=== PATIENT | male | born 1965 | race Asian ===

== ENCOUNTER 2018-03-17 10:48 | Day surgery (SDC) | payer MEDICAID ==
[~2018-03-17] VITALS: Ht 165.1 cm; Wt 54.5 kg
[~2018-03-17 10:48] MED LIST: DIPH25CA83 PO; METH-603 PO; PENI500T2 PO; PRED10TA PO
[2018-03-17] MEDS ORDERED: METHADONE (11:53)
[2018-03-17 12:00] VITALS: BP 120/70
[2018-03-17] MEDS ORDERED: fentaNYL/PF 50MCG/1 ML 2ML syringe ONE (12:17)
[2018-03-17] MEDS ORDERED: LIDOcaine Viscous 15ml cup ONE (12:17)
[2018-03-17] MEDS ORDERED: MIDAZolam 5mg/5ml vial ONE (12:17)
[2018-03-17 13:46] VITALS: BP 119/76
[2018-03-17 13:56] VITALS: BP 107/78
[2018-03-17 14:06] VITALS: BP 108/73
[2018-03-17 14:16] VITALS: BP 115/80
== END 2018-03-17 14:25 | disposition home or self-care (01) ==
LOC: GI LAB 10:48
PROVIDERS: ATTEND Internal Medicine Gastroenterology
DX: K44.9 Diaphragmatic hernia without obstruction or gangrene (principal)
CPT/HCPCS: 43235; 99152; J2250; J3010; J7030

== ENCOUNTER 2019-04-03 08:16 | Emergency (ER) | payer MEDICAID ==
[~2019-04-03] VITALS: Ht 177.8 cm; Wt 77.0 kg
[~2019-04-03 08:16] MED LIST changes: -DIPH25CA83 PO; -METH-603 PO; +METHADONE; -PENI500T2 PO; -PRED10TA PO
[2019-04-03 08:41] LABS: BASOPHILS % (AUTO) 0.1 % (0-1); EOSINOPHILS # (AUTO) 0.5 X10'3 (0-0.9); EOSINOPHILS % (AUTO) 3.1 % (0-6); HEMATOCRIT 44.2 % (42.0-52.0); HEMOGLOBIN 14.6 g/dl (14.0-17.9); LYMPHOCYTES % (AUTO) 16.7 % (21-51); MEAN CORPUSCULAR VOLUME 81.8 FL (78-98); MONOCYTES # (AUTO) 1.1 X10'3 (0-0.9); MONOCYTES % (AUTO) 6.4 % (2-12); NEUTROPHILS # (AUTO) 13.2 X10'3 (1.8-7.7); NEUTROPHILS % (AUTO) 73.7 % (42-75); PLATELET COUNT 336 X10'3 (140-440); RED BLOOD COUNT 5.41 X10'6 (4.70-6.10); RED CELL DISTRIBUTION WIDTH 16.1 % (11.5-14.5); WHITE BLOOD COUNT 17.9 X10'3 (4.5-11.0)
[2019-04-03 08:56] LABS: ALANINE AMINOTRANSFERASE 33 U/L (12-78); ALBUMIN 3.7 G/DL (3.4-5.0); ALBUMIN/GLOBULIN RATIO 0.8 (1.1-1.5); ALKALINE PHOSPHATASE 85 IU/L (46-116); ANION GAP 8 (8-16); ASPARTATE AMINO TRANSFERASE 19 U/L (10-37); BILIRUBIN,TOTAL 0.3 MG/DL (0.1-1.0); BLOOD UREA NITROGEN 8 MG/DL (7-18); BUN/CREATININE RATIO 9.2 (5.4-32.0); CALCIUM 8.7 MG/DL (8.5-10.1); CHLORIDE 104 MMOL/L (99-107); CREATININE 0.87 MG/DL (0.60-1.10); GLUCOSE 116 MG/DL (70-104); POTASSIUM 3.8 MMOL/L (3.5-5.1); SODIUM 142 MMOL/L (135-145); TOTAL CARBON DIOXIDE 29.6 MMOL/L (24-32); TOTAL PROTEIN 8.1 G/DL (6.4-8.2); eGFR > 90 ML/MIN
[2019-04-03] MEDS ORDERED: ondansetron/PF 4mg/2ml inj IV ONE (09:10)
[2019-04-03] MEDS ORDERED: pantoprazole 40 MG vial IV ONE (09:10)
[2019-04-03] MEDS ORDERED: normal saline 1000ML IV soln IVB ONE (09:10)
[2019-04-03] MEDS: morphine 2 MG/ML inj. syringe IV PRN ×2 (09:18→10:46)
[2019-04-03 09:31] LABS: CLARITY,URINE CLEAR (Clear); COLOR,URINE YELLOW (Yellow); GLUCOSE, URINE NEGATIVE (Neg); KETONES,URINE NEGATIVE (Neg); LEUKOCYTE ESTERASE ,URINE NEGATIVE (Neg); NITRITES, URINE NEGATIVE (Neg); OCCULT BLOOD,URINE NEGATIVE (Neg); PROTEIN,URINE NEGATIVE (Neg)
[2019-04-03 09:34] LABS: UA COLLECTION TYPE STRAIGHT CATH
--- NOTE | 2019-04-03 09:36 | NUR ---
Spouse at bedside,due meds given,patient appears comfortable on bed holden position,call light within reach.Awaiting for lab test result.
[2019-04-03] MEDS ORDERED: iohexol 300mg/ml 100ml inj. ONE (10:14)
[2019-04-03] MEDS ORDERED: magnesium citrate 296ml oral solution PO ONE (12:05)
--- NOTE | 2019-04-03 12:11 | NUR ---
CALLED CHILD/ODONNELL MADE AWARE THAT PATIENT IS BEING DISCHARGE AND THAT MD NEEDS TO TALK TO A FAMILY MEMBER UPON DC TO INTERPRET DC INSTRUCTIONS.
--- NOTE | 2019-04-03 12:54 | NUR ---
assisted pt with urinal, no other needs at this time.
[2019-04-03 14:22] VITALS: BP 109/73
== END 2019-04-03 14:24 | disposition home or self-care (01) ==
LOC: ER 08:17
DX: K59.00 Constipation, unspecified (principal); R10.13 Epigastric pain; R41.0 Disorientation, unspecified; G89.29 Other chronic pain; F17.200 Nicotine dependence, unspecified, uncomplicated; Z88.6 Allergy status to analgesic agent; Z79.899 Other long term (current) drug therapy
CPT/HCPCS: 36415; 74177; 80053; 81003; 85025; 85610; 96374; 96375; 96376; 99284; C9113; J2270; J2405; J7030; Q9967

== ENCOUNTER 2020-02-09 20:47 | Emergency (ER) | payer MEDICAID ==
[~2020-02-09] VITALS: Ht 167.6 cm; Wt 81.8 kg
--- NOTE | 2020-02-09 21:06 | NUR ---
SAMANTHA [phone]
[2020-02-09] MEDS ORDERED: proCHLORperazine 10 MG/2 ml inj IV ONE (21:25)
[2020-02-09] MEDS ORDERED: normal saline 1000ML IV soln IVB ONE (21:25)
[2020-02-09 21:34] LABS: BASOPHILS # (AUTO) 0.1 X10'3 (0-0.2); BASOPHILS % (AUTO) 0.6 % (0-1); EOSINOPHILS # (AUTO) 0.3 X10'3 (0-0.9); EOSINOPHILS % (AUTO) 2.4 % (0-6); HEMATOCRIT 47.9 % (42.0-52.0); HEMOGLOBIN 15.5 g/dl (14.0-17.9); LYMPHOCYTES # (AUTO) 1.8 X10'3 (1.1-4.8); LYMPHOCYTES % (AUTO) 13.3 % (21-51); MEAN CORPUSCULAR HEMOGLOBIN 25.8 PG (27.0-31.0); MEAN CORPUSCULAR HGB CONC 32.3 g/dL (33.0-36.5); MEAN CORPUSCULAR VOLUME 79.8 FL (78-98); MEAN PLATELET VOLUME 7.7 FL (7.4-10.4); MONOCYTES # (AUTO) 1.1 X10'3 (0-0.9); MONOCYTES % (AUTO) 7.7 % (2-12); NEUTROPHILS # (AUTO) 10.4 X10'3 (1.8-7.7); PLATELET COUNT 289 X10'3 (140-440); RED CELL DISTRIBUTION WIDTH 16.6 % (11.5-14.5); WHITE BLOOD COUNT 13.7 X10'3 (4.5-11.0)
[2020-02-09 21:48] LABS: ALANINE AMINOTRANSFERASE 59 U/L (12-78); ALBUMIN 3.8 G/DL (3.4-5.0); ALBUMIN/GLOBULIN RATIO 0.8 (1.1-1.5); ALKALINE PHOSPHATASE 92 IU/L (46-116); AMYLASE 54 U/L (25-115); ANION GAP 3 (8-16); ASPARTATE AMINO TRANSFERASE 26 U/L (10-37); BILIRUBIN,TOTAL 0.4 MG/DL (0.1-1.0); BLOOD UREA NITROGEN 9 MG/DL (7-18); BUN/CREATININE RATIO 10.6 (5.4-32.0); CALCIUM 9.1 MG/DL (8.5-10.1); CHLORIDE 99 MMOL/L (99-107); CREATININE 0.85 MG/DL (0.60-1.10); GLUCOSE 293 MG/DL (70-104); LIPASE 204 U/L (73-393); POTASSIUM 4.4 MMOL/L (3.5-5.1); SODIUM 135 MMOL/L (135-145); TOTAL CARBON DIOXIDE 32.7 MMOL/L (24-32); TOTAL PROTEIN 8.4 G/DL (6.4-8.2); eGFR > 90 ML/MIN
[2020-02-09 22:35] LABS: CLARITY,URINE CLEAR (Clear); COLOR,URINE YELLOW (Yellow); GLUCOSE, URINE >=1000 mg/dl (Neg); KETONES,URINE NEGATIVE (Neg); LEUKOCYTE ESTERASE ,URINE NEGATIVE (Neg); NITRITES, URINE NEGATIVE (Neg); OCCULT BLOOD,URINE NEGATIVE (Neg); PROTEIN,URINE NEGATIVE (Neg); UROBILINOGEN,URINE 0.2 E.U/dL (0.2-1.0)
[2020-02-09 22:37] LABS: UA COLLECTION TYPE CLN CATCH MIDSTREAM
[2020-02-09 22:40] LABS: BACTERIA,URINE NONE SEEN /HPF (Neg); RBC,URINE NONE SEEN /HPF (0-2); SQUAMOUS EPITHELIAL CELL,UR FEW /LPF (FEW); WBC,URINE NONE SEEN /HPF (0-4)
[2020-02-09] MEDS ORDERED: PROC-8 PO (23:26)
[2020-02-10 00:04] VITALS: BP 120/87
== END 2020-02-10 00:05 | disposition home or self-care (01) ==
LOC: ER 20:47
DX: R11.0 Nausea (principal); R10.84 Generalized abdominal pain; R73.9 Hyperglycemia, unspecified; G89.29 Other chronic pain; F19.90 Other psychoactive substance use, unspecified, uncomplicated; Z88.6 Allergy status to analgesic agent; Z79.899 Other long term (current) drug therapy
CPT/HCPCS: 36415; 74176; 80053; 81001; 82150; 83690; 85025; 96361; 96374; 99284; J0780; J7030